=== PATIENT | male | born 1945 | race African-American/Black ===

== ENCOUNTER 2023-01-27 23:31 | Observation (INO) | payer OTHER ==
[2023-01-28 00:27] LABS: #Monocytes 0.7 thou/uL (0.11-0.59); #Neutrophils 13.6 thou/uL (1.40-6.50); %Basophils 0.1 % (0.0-1.0); %Eosinophils 0.1 % (0.0-10.0); %Lymphocytes 5.7 % (21.0-51.0); %Monocytes 4.8 % (0.0-10.0); %Neutrophils 88.8 % (42.0-75.0); Hemoglobin 8.4 g/dL (14.0-18.0); Mean Corpuscular Hemoglobin 29.9 pg (27.0-31.0); Mean Corpuscular Volume 99.6 fl (78.0-98.0); Platelet Count 261 10x3/uL (130-400); RBC Distribution Width 15.5 % (11.5-14.5); Red Blood Cell (RBC) Count 2.81 mill/uL (4.70-6.10); White Blood Cell (WBC) Count 15.3 10x3/uL (4.8-10.8)
[2023-01-28 00:43] LABS: INR-International Normal Ratio 1.1; Prothrombin Time 14.9 sec (12.0-14.7)
[2023-01-28 00:46] LABS: PTT 21.8 sec (22.9-36.1)
[2023-01-28 00:49] LABS: ALT (SGPT) Less than 7 U/L (8-55); AST (SGOT) 13 U/L (5-34); Albumin 3.6 g/dL (3.4-4.8); Alkaline Phosphatase 53 U/L (40-110); Anion Gap 17 mmol/L (10-20); BUN (Urea Nitrogen) 33 mg/dL (8.4-25.7); Bilirubin, Total 0.3 mg/dL (0.2-1.2); Calc. Creatinine Clearance 0 mL/min (70-130); Calcium 8.8 mg/dL (7.8-10.44); Carbon Dioxide 15 mmol/L (23-31); Chloride 110 mmol/L (98-107); Estimated GFR 33; Globulin 2.7 g/dL (2.4-3.5); Glucose 200 mg/dL (83-110); Protein, Total 6.3 g/dL (5.8-8.1); Sodium 137 mmol/L (136-145)
[2023-01-28] MEDS ORDERED: HumaLOG 300 UNITS/3 ML VIAL SC PRN ×2 (00:56)
[2023-01-28] MEDS ORDERED: Ondansetron ODT 4 MG TAB PO PRN (00:56)
[2023-01-28] MEDS ORDERED: Dextrose 5% in Water 1,000 ML IV PRN (00:56)
[2023-01-28] MEDS ORDERED: Glucagon 1 MG/ML KIT IM PRN (00:56)
[2023-01-28] MEDS ORDERED: Dextrose 50% Abboject 50 ML SYRINGE SLOW IVP PRN (00:56)
[2023-01-28] MEDS ORDERED: Calcium Carbonate 500 MG ChewTAB PO PRN (00:56)
[2023-01-28] MEDS ORDERED: Lactated Ringer's 1,000 ML IV SCH (01:00)
[2023-01-28 01:42] VITALS: BMI 27.7
[2023-01-28 08:42] LABS: #Monocytes 0.9 thou/uL (0.11-0.59); #Neutrophils 7.3 thou/uL (1.40-6.50); %Basophils 0.2 % (0.0-1.0); %Eosinophils 0.2 % (0.0-10.0); %Lymphocytes 16.2 % (21.0-51.0); %Monocytes 8.6 % (0.0-10.0); %Neutrophils 74.2 % (42.0-75.0); Hematocrit 24.1 % (42.0-52.0); Hemoglobin 7.7 g/dL (14.0-18.0); Mean Corpuscular Hemoglobin 29.8 pg (27.0-31.0); Platelet Count 254 10x3/uL (130-400); RBC Distribution Width 15.6 % (11.5-14.5); Red Blood Cell (RBC) Count 2.58 mill/uL (4.70-6.10); White Blood Cell (WBC) Count 9.9 10x3/uL (4.8-10.8)
[2023-01-28 09:00] LABS: Mean Corpuscular Volume 93.4 fl (78.0-98.0)
[2023-01-28 09:03] LABS: Anion Gap 11 mmol/L (10-20); BUN (Urea Nitrogen) 29 mg/dL (8.4-25.7); Calc. Creatinine Clearance 57 mL/min (70-130); Calcium 8.8 mg/dL (7.8-10.44); Carbon Dioxide 21 mmol/L (23-31); Chloride 111 mmol/L (98-107); Estimated GFR 48; Glucose 100 mg/dL (83-110); Potassium 4.4 mmol/L (3.5-5.1); Sodium 139 mmol/L (136-145)
[2023-01-28 09:06] LABS: Iron 32 ug/dL (65-175); Iron Binding Capacity, Total 220 mcg/dL (261-462)
[2023-01-28] MEDS: Pantoprazole 40 MG VIAL IVP SCH (09:49)
[2023-01-28 10:13] LABS: Hematocrit 24.5 % (42.0-52.0); Platelet Count 244 10x3/uL (130-400)
[2023-01-28] MEDS ORDERED: Ferrous Sulfate 325 MG TAB PO SCH (14:44)
[2023-01-28] MEDS ORDERED: GoLYTELY 4,000 ml Bottle PO SCH (15:00)
[2023-01-28 17:38] LABS: Hematocrit 21.2 % (42.0-52.0); Hemoglobin 6.7 g/dL (14.0-18.0); Platelet Count 231 10x3/uL (130-400)
[2023-01-29 05:46] LABS: #Eosinphils 0.1 thou/uL (0.0-0.7); #Monocytes 0.8 thou/uL (0.11-0.59); #Neutrophils 4.8 thou/uL (1.40-6.50); %Basophils 0.3 % (0.0-1.0); %Eosinophils 1.2 % (0.0-10.0); %Lymphocytes 21.7 % (21.0-51.0); %Monocytes 10.4 % (0.0-10.0); %Neutrophils 65.8 % (42.0-75.0); Hematocrit 24.5 % (42.0-52.0); Hemoglobin 7.9 g/dL (14.0-18.0); Mean Corpuscular HGB CONC 32.2 g/dL (32.0-36.0); Mean Corpuscular Hemoglobin 29.6 pg (27.0-31.0); Mean Corpuscular Volume 91.8 fl (78.0-98.0); Mean Platelet Volume 10.8 fL (7.4-10.4); Platelet Count 224 10x3/uL (130-400); RBC Distribution Width 15.8 % (11.5-14.5); Red Blood Cell (RBC) Count 2.67 mill/uL (4.70-6.10); White Blood Cell (WBC) Count 7.2 10x3/uL (4.8-10.8)
[2023-01-29 06:15] LABS: Anion Gap 10 mmol/L (10-20); BUN (Urea Nitrogen) 18 mg/dL (8.4-25.7); Calc. Creatinine Clearance 78 mL/min (70-130); Calcium 8.7 mg/dL (7.8-10.44); Carbon Dioxide 26 mmol/L (23-31); Chloride 109 mmol/L (98-107); Estimated GFR 70; Glucose 92 mg/dL (83-110); Potassium 4.2 mmol/L (3.5-5.1); Sodium 141 mmol/L (136-145)
[2023-01-29] MEDS ORDERED: Ferrous Sulfate 325 MG TAB PO SCH (08:00)
[2023-01-29] MEDS: Pantoprazole 40 MG VIAL IVP SCH (08:40)
[2023-01-29] MEDS ORDERED: ePHEDrine Sulfate 50 MG/10 ML VIAL ONE (11:42)
[2023-01-29] MEDS ORDERED: PROPOFOL 200 MG/20 ML VIAL ONE (11:42)
[2023-01-29] MEDS ORDERED: Lidocaine 1% PF 5 ML VIAL ONE (11:42)
[2023-01-29 13:18] VITALS: BP 113/55; TEMP 97.7
[2023-01-30] MEDS ORDERED: Iron Polysaccharides Complex 150 MG CAP PO SCH (08:00)
[2023-01-30] MEDS ORDERED: Atorvastatin Calcium 40 MG TAB PO SCH (09:00)
== END 2023-01-29 18:25 | disposition home or self-care (01) ==
LOC: ERS 23:31 → T4-B 01-28 00:15 → INTOOBSV 01-28 00:15
PROVIDERS: ADMIT Student in an Organized Health Care Education/Training Program; ATTEND Family Medicine
PROC: 0DJ08ZZ Inspection of Upper Intestinal Tract, Via Natural or Artificial Opening Endoscopic (ICD-10-PCS; principal; 2023-01-29)
PROC: 0DJD8ZZ Inspection of Lower Intestinal Tract, Via Natural or Artificial Opening Endoscopic (ICD-10-PCS; 2023-01-29)
DX: K92.1 Melena (principal); D50.0 Iron deficiency anemia secondary to blood loss (chronic); I12.9 Hypertensive chronic kidney disease with stage 1 through stage 4 chronic kidney disease, or unspecified chronic kidney disease; E11.22 Type 2 diabetes mellitus with diabetic chronic kidney disease; N18.9 Chronic kidney disease, unspecified; N17.9 Acute kidney failure, unspecified; K21.9 Gastro-esophageal reflux disease without esophagitis; K31.89 Other diseases of stomach and duodenum; K57.90 Diverticulosis of intestine, part unspecified, without perforation or abscess without bleeding; F17.200 Nicotine dependence, unspecified, uncomplicated; E78.5 Hyperlipidemia, unspecified; D72.829 Elevated white blood cell count, unspecified; Z79.84 Long term (current) use of oral hypoglycemic drugs; Z79.899 Other long term (current) drug therapy
CPT/HCPCS: 36430; 43235; 45378; 80048 ×2; 80053; 82728; 82962 ×2; 83036; 83540; 83550; 85014; 85018; 85025 ×2; 85046; 85049; 85610; 85730; 86850; 86900; 86901; 86920; 93005; 99285; G0378; P9016; 36415; 36416; C9113; J2704; J7120